=== PATIENT | female | born 1985 | race African-American/Black ===

== ENCOUNTER 2019-05-12 17:24 | Emergency (ER) | payer OTHER ==
[~2019-05-12] VITALS: Ht 160 cm; Wt 55.3 kg
--- NOTE | 2019-05-12 17:36 | NUR ---
Patient to ER bed H1 to gown for evaluation. Side rails up.
--- NOTE | 2019-05-12 17:42 | NUR ---
pt arrives from home w/ c/o cough. KRAFT, chest wall pain when coughing only. Body aches. Pt is afebrile
[2019-05-12 17:51] VITALS: BP_SYST 109
--- NOTE | 2019-05-12 17:53 | NUR ---
ADELINE KUMAR is at bedside examining patient.
[2019-05-12 18:14] VITALS: BP_SYST 109
--- NOTE | 2019-05-12 18:15 | NUR ---
Patient given written and verbal discharge instructions and verbalizes understanding. ER MD discussed with patient the results and treatment provided. Patient in stable condition. ID arm band removed. Rx of Promethazine, Ventolin, and Iboprofen given. Patient educated on pain management and to follow up with PMD. Pain Scale 4/10. Opportunity for questions provided and answered. Medication side effect fact sheet provided.
== END 2019-05-12 18:15 | disposition home or self-care (01) ==
LOC: SED 17:24
DX: B34.9 Viral infection, unspecified (principal)
CPT/HCPCS: 99283

== ENCOUNTER 2019-06-16 14:16 | Emergency (ER) | payer OTHER ==
[~2019-06-16] VITALS: Ht 160 cm; Wt 55.3 kg
[2019-06-16 14:42] VITALS: BP_SYST 119
--- NOTE | 2019-06-16 14:46 | NUR ---
Patient triaged and placed in waiting room. VSS and patient appears in no acute distress at this time. Accompanied by FRIEND, awaiting available bed, and MD notified of need for MSE.
--- NOTE | 2019-06-16 16:09 | NUR ---
Patient to ER bed h1 for evaluation. Side rails up.
--- NOTE | 2019-06-16 16:34 | NUR ---
ER at bedside examining patient.
--- NOTE | 2019-06-16 16:37 | NUR ---
Pt AAOx4 presents to ED c/o 12/26 pain and swelling to R foot x 2-3 months. Pt has seen PCPs who report pt has sprained ankle, but has not had any improvement. Reports recent employment and [employer]. Denies trauma/gout/chest pain/n/v/abd pain/smoking/alcohol use/drug use. No other injuries/complaints per pt/noted. Will continue to monitor.
[2019-06-16] MEDS ORDERED: ONDANSETRON HCL 4 MG/2 ML VIAL IVP ONE (16:45)
[2019-06-16] MEDS ORDERED: KETOROLAC TROMETHAMINE 60 MG/2 ML VIAL IM ONE (17:00)
[2019-06-16 17:29] LABS: BASOPHILS # (AUTO) 0.1 K/uL (0.0-0.2); BASOPHILS % (AUTO) 0.7 % (0.0-2.0); EOSINOPHILS # (AUTO) 0.2 K/uL (0.0-0.4); EOSINOPHILS % (AUTO) 2.4 % (0.0-4.0); HEMATOCRIT 38.6 % (36-48); HEMOGLOBIN 12.8 g/dL (12.0-16.0); LYMPHOCYTES # (AUTO) 2.6 K/uL (1.0-5.5); LYMPHOCYTES % (AUTO) 29.3 % (20.5-51.5); MEAN CORPUSCULAR HEMOGLOBIN 30 pg (27-31); MEAN CORPUSCULAR HGB CONC 33 % (32-36); MEAN CORPUSCULAR VOLUME 91 fL (79.0-98.0); MONOCYTES # (AUTO) 0.6 K/uL (0.0-1.0); MONOCYTES % (AUTO) 6.8 % (1.7-9.3); NEUTROPHILS # (AUTO) 5.4 K/uL (1.8-7.7); NEUTROPHILS % (AUTO) 60.8 % (40.0-70.0); PLATELET COUNT (AUTO) 250 K/uL (130-430); RED BLOOD CELL COUNT(AUTO) 4.25 MIL/uL (4.2-6.2); WHITE BLOOD COUNT (AUTO) 8.9 K/uL (4.8-10.8)
[2019-06-16 17:40] LABS: CALCIUM 8.6 mg/dL (8.4-11.0); CREATININE 0.8 mg/dL (0.55-1.30); POTASSIUM 3.6 mmol/L (3.5-5.1)
[2019-06-16 17:46] LABS: ALBUMIN 3.8 g/dL (3.4-4.8); TOTAL BILIRUBIN 0.7 mg/dL (0.0-1.0)
[2019-06-16 19:03] VITALS: BP_SYST 124
--- NOTE | 2019-06-16 19:29 | NUR ---
Patient given written and verbal discharge instructions and verbalizes understanding. ER MD Mendoza discussed with patient the results and treatment provided. Patient in stable condition. ID arm band removed. Rx of Tylenol with Codeine, Naprosyn given. Patient educated on pain management and to follow up with PMD. Pain Scale 0. Opportunity for questions provided and answered. Medication side effect fact sheet provided.
== END 2019-06-16 19:03 | disposition home or self-care (01) ==
LOC: SED 14:16
DX: S92.302A Fracture of unspecified metatarsal bone(s), left foot, initial encounter for closed fracture (principal); X50.0XXA Overexertion from strenuous movement or load, initial encounter; Y93.89 Activity, other specified; Y92.89 Other specified places as the place of occurrence of the external cause; Y99.8 Other external cause status
CPT/HCPCS: 29515; 36415; 73630; 80053; 85025; 86431; 96372; 99284; J1885